=== PATIENT | female | born 1940 | race Caucasian/White ===

== ENCOUNTER 2024-05-18 14:01 | Emergency (ER) | payer MEDICARE, BC ==
[2024-05-18 15:51] LABS: BLOOD UREA NITROGEN,BUN 29 mg/dL (7-18); BUN/CREATININE RATIO 19.3 (9-20); CALCIUM 8.6 mg/dL (8.6-10.2); CARBON DIOXIDE,CO2 25 mmol/L (21-32); CHLORIDE,CL 95 mmol/L (100-110); CREATININE 1.5 mg/dL (0.55-1.02); ESTIMATED GFR 34 mL/min (>60); GLUCOSE RANDOM 285 mg/dL (80-116); POTASSIUM,K 4.9 mmol/L (3.5-5.3); SODIUM,NA 128 mmol/L (135-145)
[2024-05-18 15:57] LABS: A/G RATIO 1.1; ALANINE AMINOTRANSFERASE,ALT 50 U/L (12-36); ALBUMIN 3.1 g/dL (3.2-4.6); ALKALINE PHOSPHATASE 46 IU/L (56-112); ASPARTATE AMNIOTRANSFERASE,AST 33 IU/L (5-25); BILIRUBIN TOTAL 0.8 mg/dL (0.1-1.3); MAGNESIUM 1.4 mg/dL (1.8-2.5); PROTEIN TOTAL,TP 5.9 g/dL (6.0-8.0)
[2024-05-18 15:59] LABS: HEMATOCRIT 32.4 % (34.2-48.2); HEMOGLOBIN 10.7 g/dL (11.4-15.5); MEAN CORPUSCULAR HEMOGLOBIN 30.2 pg (23.9-33.9); MEAN CORPUSCULAR HGB CONC 33.1 g/dL (31.9-34.8); MEAN CORPUSCULAR VOLUME 91.2 fL (76.7-100.5); MEAN PLATELET VOLUME 9.3 fL (7.1-12.4); PLATELET COUNT,PLT 170 x10(3)uL (151-488); RED BLOOD CELL COUNT 3.55 x10(6)uL (3.60-5.20); WHITE BLOOD CELL COUNT,WBC 7.3 x10-3/uL (3.0-10.3)
[2024-05-18 16:47] LABS: LYMPHOCYTES PERCENT MAN 10 % (13-37); MONOCYTES PERCENT MAN 6 % (4-12); SEG NEUTROPHILS PERCENT MAN 84 % (46-82)
[2024-05-18 16:51] LABS: BILIRUBIN,URINE NEGATIVE (NEGATIVE); GLUCOSE,URINE 250 mg/dL (NORMAL); KETONES,URINE NEGATIVE (NEGATIVE); LEUKOCYTE ESTERASE,URINE LARGE (NEGATIVE); NITRITE,URINE NEGATIVE (NEGATIVE); OCCULT BLOOD,URINE MODERATE (NEGATIVE); PROTEIN,URINE NEGATIVE (NEGATIVE); UROBILINOGEN,URINE NORMAL (NEGATIVE)
[2024-05-18 16:53] LABS: COLOR,URINE YELLOW (YELLOW)
[2024-05-18 16:54] LABS: APPEARANCE,URINE SLIGHTLY CLOUDY (CLEAR); BACTERIA,URINE MANY (NS); SQUAMOUS EPITHELIAL CELLS,UR RARE (NS,R,O); WBC,URINE 20-30 (0-5)
[2024-05-18] MEDS: Cefdinir 300 MG Cap PO ONE (17:42)
[2024-05-18] MEDS: Magnesium Oxide 400 MG Tab PO ONE (17:42)
== END 2024-05-18 18:21 | disposition home or self-care (01) ==
LOC: FB.ED 14:01
DX: U07.1 COVID-19 (principal); S00.93XA Contusion of unspecified part of head, initial encounter; S70.01XA Contusion of right hip, initial encounter; N39.0 Urinary tract infection, site not specified; R31.9 Hematuria, unspecified; E87.1 Hypo-osmolality and hyponatremia; E83.42 Hypomagnesemia; I13.0 Hypertensive heart and chronic kidney disease with heart failure and stage 1 through stage 4 chronic kidney disease, or unspecified chronic kidney disease; I50.9 Heart failure, unspecified; N18.32 Chronic kidney disease, stage 3b; E11.22 Type 2 diabetes mellitus with diabetic chronic kidney disease; Z90.710 Acquired absence of both cervix and uterus; Z79.899 Other long term (current) drug therapy; Z88.0 Allergy status to penicillin; Z88.1 Allergy status to other antibiotic agents; Z88.2 Allergy status to sulfonamides; Z88.6 Allergy status to analgesic agent; Z88.8 Allergy status to other drugs, medicaments and biological substances; W19.XXXA Unspecified fall, initial encounter
CPT/HCPCS: 36415; 51798; 70450; 72125; 72192; 80053; 81001; 83735; 85025; 87086; 87088; 93005; 99284; A9270; 87186; 93010

== ENCOUNTER 2024-05-19 14:43 | Inpatient (IN) | payer MEDICARE, BC ==
[2024-05-19 15:19] LABS: BASOPHILS ABSOLUTE AUTO 0.1 x10-3/uL (0.0-0.1); BASOPHILS PERCENT AUTO 0.7 % (0.2-1.5); EOSINOPHILS PERCENT AUTO 0.2 % (0.6-8.1); HEMATOCRIT 33.4 % (34.2-48.2); HEMOGLOBIN 11.2 g/dL (11.4-15.5); LYMPHOCYTES ABSOLUTE AUTO 0.7 x10-3/uL (1.0-4.4); LYMPHOCYTES PERCENT AUTO 8.9 % (18.4-52.1); MEAN CORPUSCULAR HEMOGLOBIN 30.2 pg (23.9-33.9); MEAN CORPUSCULAR HGB CONC 33.6 g/dL (31.9-34.8); MEAN CORPUSCULAR VOLUME 89.9 fL (76.7-100.5); MONOCYTES ABSOLUTE AUTO 0.5 x10-3/uL (0.3-1.0); NEUTROPHILS ABSOLUTE AUTO 6.5 x10-3/uL (1.5-6.3); NEUTROPHILS PERCENT AUTO 84.2 % (30.8-76.2); PLATELET COUNT,PLT 193 x10(3)uL (151-488); RED BLOOD CELL COUNT 3.71 x10(6)uL (3.60-5.20); RED CELL DISTRIBUTION WIDTH 15.9 % (12.3-16.5); WHITE BLOOD CELL COUNT,WBC 7.8 x10-3/uL (3.0-10.3)
[2024-05-19 15:28] LABS: A/G RATIO 1.2; ALANINE AMINOTRANSFERASE,ALT 48 U/L (12-36); ALBUMIN 3.3 g/dL (3.2-4.6); ALKALINE PHOSPHATASE 47 IU/L (56-112); ASPARTATE AMNIOTRANSFERASE,AST 32 IU/L (5-25); BLOOD UREA NITROGEN,BUN 26 mg/dL (7-18); BUN/CREATININE RATIO 21.7 (9-20); CALCIUM 8.7 mg/dL (8.6-10.2); CARBON DIOXIDE,CO2 23 mmol/L (21-32); CHLORIDE,CL 93 mmol/L (100-110); CREATININE 1.2 mg/dL (0.55-1.02); ESTIMATED GFR 45 mL/min (>60); GLUCOSE RANDOM 241 mg/dL (80-116); POTASSIUM,K 5.1 mmol/L (3.5-5.3); PROTEIN TOTAL,TP 6.1 g/dL (6.0-8.0); SODIUM,NA 126 mmol/L (135-145)
[2024-05-19 15:31] LABS: LACTIC ACID 1.4 mmol/L (0.4-2.0)
[2024-05-19] MEDS: HYDROmorphone 2 MG/ML SDV IVPUSH ONE (15:50)
[2024-05-19] MEDS: Lactated Ringers 1,000 ML IV ONE (15:51)
[2024-05-19] MEDS: Ondansetron 4 MG/2 ML SDV IVPUSH ONE (17:35)
[2024-05-19] MEDS ORDERED: Ondansetron 4 MG/2 ML SDV IVPUSH PRN (21:08)
[2024-05-19] MEDS: Ondansetron 4 MG/2 ML SDV IVPUSH PRN (21:22)
[2024-05-19] MEDS: Sodium Chloride 0.9% 10 ML Syringe FLUSH PRN (21:22)
[2024-05-19] MEDS: Sodium Chloride 0.9% 1,000 ML IV SCH (21:25)
[2024-05-19] MEDS: Acetaminophen 500 MG Tab PO PRN (21:26)
[2024-05-20 06:23] LABS: BASOPHILS ABSOLUTE AUTO 0.1 x10-3/uL (0.0-0.1); BASOPHILS PERCENT AUTO 0.9 % (0.2-1.5); EOSINOPHILS ABSOLUTE AUTO 0.1 x10-3/uL (0.0-0.8); EOSINOPHILS PERCENT AUTO 1.1 % (0.6-8.1); HEMOGLOBIN 9.9 g/dL (11.4-15.5); LYMPHOCYTES ABSOLUTE AUTO 1.1 x10-3/uL (1.0-4.4); LYMPHOCYTES PERCENT AUTO 17.3 % (18.4-52.1); MEAN CORPUSCULAR HEMOGLOBIN 30.7 pg (23.9-33.9); MEAN CORPUSCULAR HGB CONC 34.1 g/dL (31.9-34.8); MEAN CORPUSCULAR VOLUME 90.2 fL (76.7-100.5); MEAN PLATELET VOLUME 8.4 fL (7.1-12.4); MONOCYTES ABSOLUTE AUTO 0.7 x10-3/uL (0.3-1.0); MONOCYTES PERCENT AUTO 10.1 % (4.4-15.7); NEUTROPHILS ABSOLUTE AUTO 4.6 x10-3/uL (1.5-6.3); NEUTROPHILS PERCENT AUTO 70.6 % (30.8-76.2); PLATELET COUNT,PLT 147 x10(3)uL (151-488); RED BLOOD CELL COUNT 3.22 x10(6)uL (3.60-5.20); RED CELL DISTRIBUTION WIDTH 16.1 % (12.3-16.5); WHITE BLOOD CELL COUNT,WBC 6.5 x10-3/uL (3.0-10.3)
[2024-05-20 06:36] LABS: ALANINE AMINOTRANSFERASE,ALT 34 U/L (12-36); ALBUMIN 2.6 g/dL (3.2-4.6); ALKALINE PHOSPHATASE 35 IU/L (56-112); ASPARTATE AMNIOTRANSFERASE,AST 25 IU/L (5-25); BLOOD UREA NITROGEN,BUN 18 mg/dL (7-18); CALCIUM 7.7 mg/dL (8.6-10.2); CARBON DIOXIDE,CO2 29 mmol/L (21-32); CHLORIDE,CL 97 mmol/L (100-110); CREATININE 1.2 mg/dL (0.55-1.02); EST CRCL DRUG DOSING (CG) 30.14 mL/min; ESTIMATED GFR 45 mL/min (>60); GLUCOSE RANDOM 88 mg/dL (80-116); POTASSIUM,K 4.6 mmol/L (3.5-5.3); PROTEIN TOTAL,TP 5.2 g/dL (6.0-8.0); SODIUM,NA 130 mmol/L (135-145)
[2024-05-20] MEDS: cefTRIAXone 1 GM Vial IVPUSH SCH (09:11)
[2024-05-20] MEDS: Iopamidol 755 Mg/ML 100 ML Bottle IV ONE (10:12)
[2024-05-20] MEDS: Acetaminophen/HYDROcodone 325-5 MG Tab PO PRN (10:21)
[2024-05-20] MEDS: Sodium Chloride 0.9% 500 ML IV ONE (10:21)
[2024-05-20] MEDS ORDERED: Albuterol 6.7 GM Inhaler INH PRN (11:05)
[2024-05-20] MEDS: Magnesium Sulfate/Water 2 GM in Premix Bag 1 BAG IV ONE (12:01)
[2024-05-20] MEDS ORDERED: Morphine 2 MG/ML SYRINGE IVPUSH PRN (17:13)
[2024-05-20] MEDS: Formoterol/Mometasone 200-5 MCG 8.8 GM Inhaler IH SCH (21:22)
[2024-05-20] MEDS: Carvedilol 6.25 MG Tab PO SCH (21:23)
[2024-05-21 06:25] LABS: BASOPHILS ABSOLUTE AUTO 0.1 x10-3/uL (0.0-0.1); BASOPHILS PERCENT AUTO 0.9 % (0.2-1.5); EOSINOPHILS PERCENT AUTO 0.3 % (0.6-8.1); HEMOGLOBIN 10.8 g/dL (11.4-15.5); LYMPHOCYTES ABSOLUTE AUTO 0.8 x10-3/uL (1.0-4.4); LYMPHOCYTES PERCENT AUTO 7.7 % (18.4-52.1); MEAN CORPUSCULAR HEMOGLOBIN 30.6 pg (23.9-33.9); MEAN CORPUSCULAR HGB CONC 33.9 g/dL (31.9-34.8); MEAN CORPUSCULAR VOLUME 90.3 fL (76.7-100.5); MEAN PLATELET VOLUME 8.2 fL (7.1-12.4); MONOCYTES ABSOLUTE AUTO 0.9 x10-3/uL (0.3-1.0); MONOCYTES PERCENT AUTO 8.4 % (4.4-15.7); NEUTROPHILS ABSOLUTE AUTO 8.4 x10-3/uL (1.5-6.3); NEUTROPHILS PERCENT AUTO 82.7 % (30.8-76.2); PLATELET COUNT,PLT 173 x10(3)uL (151-488); RED BLOOD CELL COUNT 3.54 x10(6)uL (3.60-5.20); RED CELL DISTRIBUTION WIDTH 15.6 % (12.3-16.5); WHITE BLOOD CELL COUNT,WBC 10.2 x10-3/uL (3.0-10.3)
[2024-05-21 06:37] LABS: A/G RATIO 1.1; ALANINE AMINOTRANSFERASE,ALT 30 U/L (12-36); ALBUMIN 2.9 g/dL (3.2-4.6); ALKALINE PHOSPHATASE 45 IU/L (56-112); ASPARTATE AMNIOTRANSFERASE,AST 28 IU/L (5-25); BILIRUBIN TOTAL 1.1 mg/dL (0.1-1.3); BLOOD UREA NITROGEN,BUN 13 mg/dL (7-18); BUN/CREATININE RATIO 11.8 (9-20); CALCIUM 7.6 mg/dL (8.6-10.2); CARBON DIOXIDE,CO2 23 mmol/L (21-32); CHLORIDE,CL 96 mmol/L (100-110); CREATININE 1.1 mg/dL (0.55-1.02); EST CRCL DRUG DOSING (CG) 32.87 mL/min; ESTIMATED GFR 50 mL/min (>60); GLUCOSE RANDOM 134 mg/dL (80-116); POTASSIUM,K 4.2 mmol/L (3.5-5.3); PROTEIN TOTAL,TP 5.5 g/dL (6.0-8.0); SODIUM,NA 127 mmol/L (135-145)
[2024-05-21] MEDS: predniSONE 1 MG Tab PO SCH (08:49)
[2024-05-21] MEDS: Magnesium Oxide 400 MG Tab PO SCH (08:49)
[2024-05-21] MEDS: predniSONE 5 MG Tab PO SCH (08:49)
[2024-05-21] MEDS: Multivitamins with Iron/Calcium/Folic Acid/Minerals Tab PO SCH (08:49)
[2024-05-21] MEDS: Folic Acid 0.4 MG Tab PO SCH (08:53)
[2024-05-21] MEDS: Bisacodyl 5 MG Tab PO PRN (14:59)
[2024-05-21] MEDS: Allopurinol 100 MG Tab PO SCH (21:06)
[2024-05-22 06:28] LABS: BASOPHILS ABSOLUTE AUTO 0.1 x10-3/uL (0.0-0.1); BASOPHILS PERCENT AUTO 0.5 % (0.2-1.5); EOSINOPHILS ABSOLUTE AUTO 0.1 x10-3/uL (0.0-0.8); EOSINOPHILS PERCENT AUTO 0.7 % (0.6-8.1); HEMATOCRIT 31.2 % (34.2-48.2); HEMOGLOBIN 10.7 g/dL (11.4-15.5); LYMPHOCYTES PERCENT AUTO 8.9 % (18.4-52.1); MEAN CORPUSCULAR HEMOGLOBIN 30.6 pg (23.9-33.9); MEAN CORPUSCULAR HGB CONC 34.1 g/dL (31.9-34.8); MEAN CORPUSCULAR VOLUME 89.5 fL (76.7-100.5); MEAN PLATELET VOLUME 8.7 fL (7.1-12.4); MONOCYTES PERCENT AUTO 8.8 % (4.4-15.7); NEUTROPHILS PERCENT AUTO 81.1 % (30.8-76.2); PLATELET COUNT,PLT 179 x10(3)uL (151-488); RED BLOOD CELL COUNT 3.49 x10(6)uL (3.60-5.20); RED CELL DISTRIBUTION WIDTH 15.5 % (12.3-16.5); WHITE BLOOD CELL COUNT,WBC 11.1 x10-3/uL (3.0-10.3)
[2024-05-22 06:37] LABS: BLOOD UREA NITROGEN,BUN 16 mg/dL (7-18); BUN/CREATININE RATIO 13.3 (9-20); CALCIUM 7.9 mg/dL (8.6-10.2); CARBON DIOXIDE,CO2 24 mmol/L (21-32); CHLORIDE,CL 96 mmol/L (100-110); CREATININE 1.2 mg/dL (0.55-1.02); EST CRCL DRUG DOSING (CG) 30.14 mL/min; ESTIMATED GFR 45 mL/min (>60); GLUCOSE RANDOM 133 mg/dL (80-116); MAGNESIUM 1.9 mg/dL (1.8-2.5); POTASSIUM,K 4.8 mmol/L (3.5-5.3); SODIUM,NA 128 mmol/L (135-145)
[2024-05-22] MEDS: Polyethylene Glycol 3350 Powder 17 GM Packet PO PRN (09:06)
[2024-05-22] MEDS: Simethicone 80 MG Tab.Chew PO PRN (11:32)
[2024-05-22] MEDS: Allopurinol 100 MG Tab PO SCH (20:15)
[2024-05-23 08:49] LABS: BASOPHILS ABSOLUTE AUTO 0.1 x10-3/uL (0.0-0.1); BASOPHILS PERCENT AUTO 0.9 % (0.2-1.5); EOSINOPHILS ABSOLUTE AUTO 0.1 x10-3/uL (0.0-0.8); EOSINOPHILS PERCENT AUTO 0.6 % (0.6-8.1); HEMATOCRIT 30.9 % (34.2-48.2); HEMOGLOBIN 10.3 g/dL (11.4-15.5); LYMPHOCYTES ABSOLUTE AUTO 0.8 x10-3/uL (1.0-4.4); LYMPHOCYTES PERCENT AUTO 8.8 % (18.4-52.1); MEAN CORPUSCULAR HEMOGLOBIN 30.4 pg (23.9-33.9); MEAN CORPUSCULAR HGB CONC 33.5 g/dL (31.9-34.8); MEAN CORPUSCULAR VOLUME 90.6 fL (76.7-100.5); MEAN PLATELET VOLUME 8.9 fL (7.1-12.4); MONOCYTES ABSOLUTE AUTO 0.6 x10-3/uL (0.3-1.0); MONOCYTES PERCENT AUTO 6.9 % (4.4-15.7); NEUTROPHILS ABSOLUTE AUTO 7.6 x10-3/uL (1.5-6.3); NEUTROPHILS PERCENT AUTO 82.8 % (30.8-76.2); PLATELET COUNT,PLT 199 x10(3)uL (151-488); RED BLOOD CELL COUNT 3.41 x10(6)uL (3.60-5.20); RED CELL DISTRIBUTION WIDTH 15.8 % (12.3-16.5); WHITE BLOOD CELL COUNT,WBC 9.1 x10-3/uL (3.0-10.3)
[2024-05-23 08:54] LABS: BLOOD UREA NITROGEN,BUN 23 mg/dL (7-18); BUN/CREATININE RATIO 17.7 (9-20); CALCIUM 8.1 mg/dL (8.6-10.2); CARBON DIOXIDE,CO2 23 mmol/L (21-32); CHLORIDE,CL 98 mmol/L (100-110); CREATININE 1.3 mg/dL (0.55-1.02); EST CRCL DRUG DOSING (CG) 27.82 mL/min; ESTIMATED GFR 41 mL/min (>60); GLUCOSE RANDOM 263 mg/dL (80-116); MAGNESIUM 1.8 mg/dL (1.8-2.5); POTASSIUM,K 5.1 mmol/L (3.5-5.3); SODIUM,NA 131 mmol/L (135-145)
[2024-05-23] MEDS: Formoterol/Mometasone 200-5 MCG 8.8 GM Inhaler IH SCH (09:25)
[2024-05-23] MEDS: Mineral Oil 133 ML BOTTLE RECTAL ONE (11:10)
[2024-05-23] MEDS: Folic Acid 0.8 MG Tab PO SCH (11:21)
[2024-05-24 06:38] LABS: BASOPHILS PERCENT AUTO 0.6 % (0.2-1.5); EOSINOPHILS ABSOLUTE AUTO 0.1 x10-3/uL (0.0-0.8); EOSINOPHILS PERCENT AUTO 0.7 % (0.6-8.1); HEMATOCRIT 28.9 % (34.2-48.2); HEMOGLOBIN 9.8 g/dL (11.4-15.5); LYMPHOCYTES ABSOLUTE AUTO 0.9 x10-3/uL (1.0-4.4); MEAN CORPUSCULAR HEMOGLOBIN 30.8 pg (23.9-33.9); MEAN CORPUSCULAR HGB CONC 33.8 g/dL (31.9-34.8); MEAN CORPUSCULAR VOLUME 91.2 fL (76.7-100.5); MEAN PLATELET VOLUME 8.3 fL (7.1-12.4); MONOCYTES ABSOLUTE AUTO 0.7 x10-3/uL (0.3-1.0); MONOCYTES PERCENT AUTO 8.7 % (4.4-15.7); NEUTROPHILS ABSOLUTE AUTO 6.4 x10-3/uL (1.5-6.3); PLATELET COUNT,PLT 194 x10(3)uL (151-488); RED BLOOD CELL COUNT 3.17 x10(6)uL (3.60-5.20); RED CELL DISTRIBUTION WIDTH 16.2 % (12.3-16.5); WHITE BLOOD CELL COUNT,WBC 8.1 x10-3/uL (3.0-10.3)
[2024-05-24 06:45] LABS: BLOOD UREA NITROGEN,BUN 24 mg/dL (7-18); CARBON DIOXIDE,CO2 27 mmol/L (21-32); CREATININE 1.2 mg/dL (0.55-1.02); EST CRCL DRUG DOSING (CG) 30.14 mL/min; ESTIMATED GFR 45 mL/min (>60); GLUCOSE RANDOM 132 mg/dL (80-116)
[2024-05-24 06:59] LABS: CHLORIDE,CL 100 mmol/L (100-110); POTASSIUM,K 4.8 mmol/L (3.5-5.3); SODIUM,NA 132 mmol/L (135-145)
[2024-05-25] MEDS: Dicyclomine 10 MG Cap PO ONE (02:05)
[2024-05-25 06:54] LABS: BASOPHILS PERCENT AUTO 0.4 % (0.2-1.5); EOSINOPHILS ABSOLUTE AUTO 0.1 x10-3/uL (0.0-0.8); EOSINOPHILS PERCENT AUTO 0.7 % (0.6-8.1); HEMATOCRIT 29.1 % (34.2-48.2); HEMOGLOBIN 9.9 g/dL (11.4-15.5); LYMPHOCYTES ABSOLUTE AUTO 0.7 x10-3/uL (1.0-4.4); LYMPHOCYTES PERCENT AUTO 10.4 % (18.4-52.1); MEAN CORPUSCULAR HEMOGLOBIN 30.7 pg (23.9-33.9); MEAN CORPUSCULAR HGB CONC 33.9 g/dL (31.9-34.8); MEAN CORPUSCULAR VOLUME 90.8 fL (76.7-100.5); MONOCYTES ABSOLUTE AUTO 0.7 x10-3/uL (0.3-1.0); MONOCYTES PERCENT AUTO 9.7 % (4.4-15.7); NEUTROPHILS ABSOLUTE AUTO 5.7 x10-3/uL (1.5-6.3); NEUTROPHILS PERCENT AUTO 78.8 % (30.8-76.2); PLATELET COUNT,PLT 201 x10(3)uL (151-488); RED BLOOD CELL COUNT 3.21 x10(6)uL (3.60-5.20); RED CELL DISTRIBUTION WIDTH 15.5 % (12.3-16.5); WHITE BLOOD CELL COUNT,WBC 7.2 x10-3/uL (3.0-10.3)
[2024-05-25 06:59] LABS: BLOOD UREA NITROGEN,BUN 19 mg/dL (7-18); BUN/CREATININE RATIO 17.3 (9-20); CALCIUM 8.4 mg/dL (8.6-10.2); CARBON DIOXIDE,CO2 29 mmol/L (21-32); CHLORIDE,CL 100 mmol/L (100-110); CREATININE 1.1 mg/dL (0.55-1.02); EST CRCL DRUG DOSING (CG) 32.87 mL/min; ESTIMATED GFR 50 mL/min (>60); GLUCOSE RANDOM 135 mg/dL (80-116); MAGNESIUM 1.5 mg/dL (1.8-2.5); POTASSIUM,K 4.5 mmol/L (3.5-5.3); SODIUM,NA 133 mmol/L (135-145)
[2024-05-25] MEDS: Sodium Chloride 0.9% 1,000 ML IV SCH (09:26)
[2024-05-25] MEDS: Magnesium Sulfate/Water 4 GM in Premix Bag 1 BAG IV ONE (09:27)
[2024-05-25] MEDS: Dicyclomine 10 MG Cap PO PRN (12:06)
[2024-05-26 07:05] LABS: BLOOD UREA NITROGEN,BUN 19 mg/dL (7-18); BUN/CREATININE RATIO 17.3 (9-20); CALCIUM 8.3 mg/dL (8.6-10.2); CARBON DIOXIDE,CO2 27 mmol/L (21-32); CHLORIDE,CL 101 mmol/L (100-110); CREATININE 1.1 mg/dL (0.55-1.02); EST CRCL DRUG DOSING (CG) 32.87 mL/min; ESTIMATED GFR 50 mL/min (>60); GLUCOSE RANDOM 113 mg/dL (80-116); MAGNESIUM 2.1 mg/dL (1.8-2.5); POTASSIUM,K 4.7 mmol/L (3.5-5.3); SODIUM,NA 135 mmol/L (135-145)
[2024-05-26 07:12] LABS: BASOPHILS PERCENT AUTO 0.3 % (0.2-1.5); EOSINOPHILS ABSOLUTE AUTO 0.1 x10-3/uL (0.0-0.8); EOSINOPHILS PERCENT AUTO 1.2 % (0.6-8.1); HEMATOCRIT 29.7 % (34.2-48.2); HEMOGLOBIN 10.1 g/dL (11.4-15.5); LYMPHOCYTES ABSOLUTE AUTO 0.7 x10-3/uL (1.0-4.4); LYMPHOCYTES PERCENT AUTO 12.3 % (18.4-52.1); MEAN CORPUSCULAR HEMOGLOBIN 30.9 pg (23.9-33.9); MEAN CORPUSCULAR VOLUME 90.7 fL (76.7-100.5); MEAN PLATELET VOLUME 8.2 fL (7.1-12.4); MONOCYTES ABSOLUTE AUTO 0.6 x10-3/uL (0.3-1.0); MONOCYTES PERCENT AUTO 9.9 % (4.4-15.7); NEUTROPHILS ABSOLUTE AUTO 4.6 x10-3/uL (1.5-6.3); NEUTROPHILS PERCENT AUTO 76.3 % (30.8-76.2); PLATELET COUNT,PLT 212 x10(3)uL (151-488); RED BLOOD CELL COUNT 3.27 x10(6)uL (3.60-5.20); RED CELL DISTRIBUTION WIDTH 15.8 % (12.3-16.5); WHITE BLOOD CELL COUNT,WBC 6.1 x10-3/uL (3.0-10.3)
[2024-05-27 06:53] LABS: BASOPHILS PERCENT AUTO 0.4 % (0.2-1.5); EOSINOPHILS ABSOLUTE AUTO 0.1 x10-3/uL (0.0-0.8); HEMATOCRIT 27.9 % (34.2-48.2); HEMOGLOBIN 9.4 g/dL (11.4-15.5); LYMPHOCYTES ABSOLUTE AUTO 0.7 x10-3/uL (1.0-4.4); LYMPHOCYTES PERCENT AUTO 12.8 % (18.4-52.1); MEAN CORPUSCULAR HEMOGLOBIN 30.8 pg (23.9-33.9); MEAN CORPUSCULAR HGB CONC 33.7 g/dL (31.9-34.8); MEAN CORPUSCULAR VOLUME 91.3 fL (76.7-100.5); MEAN PLATELET VOLUME 8.1 fL (7.1-12.4); MONOCYTES ABSOLUTE AUTO 0.6 x10-3/uL (0.3-1.0); MONOCYTES PERCENT AUTO 10.1 % (4.4-15.7); NEUTROPHILS ABSOLUTE AUTO 4.2 x10-3/uL (1.5-6.3); NEUTROPHILS PERCENT AUTO 75.7 % (30.8-76.2); PLATELET COUNT,PLT 202 x10(3)uL (151-488); RED BLOOD CELL COUNT 3.06 x10(6)uL (3.60-5.20); RED CELL DISTRIBUTION WIDTH 15.9 % (12.3-16.5); WHITE BLOOD CELL COUNT,WBC 5.5 x10-3/uL (3.0-10.3)
[2024-05-27 07:04] LABS: BLOOD UREA NITROGEN,BUN 17 mg/dL (7-18); CALCIUM 7.8 mg/dL (8.6-10.2); CARBON DIOXIDE,CO2 26 mmol/L (21-32); CHLORIDE,CL 104 mmol/L (100-110); EST CRCL DRUG DOSING (CG) 36.16 mL/min; ESTIMATED GFR 56 mL/min (>60); GLUCOSE RANDOM 109 mg/dL (80-116); POTASSIUM,K 3.6 mmol/L (3.5-5.3); SODIUM,NA 136 mmol/L (135-145)
[2024-05-27] MEDS: Magnesium Sulfate/Water 2 GM in Premix Bag 1 BAG IV ONE (13:59)
[2024-05-28 06:47] LABS: BASOPHILS PERCENT AUTO 0.4 % (0.2-1.5); EOSINOPHILS ABSOLUTE AUTO 0.1 x10-3/uL (0.0-0.8); EOSINOPHILS PERCENT AUTO 0.9 % (0.6-8.1); HEMATOCRIT 29.5 % (34.2-48.2); LYMPHOCYTES ABSOLUTE AUTO 0.8 x10-3/uL (1.0-4.4); LYMPHOCYTES PERCENT AUTO 13.6 % (18.4-52.1); MEAN CORPUSCULAR HEMOGLOBIN 30.9 pg (23.9-33.9); MEAN CORPUSCULAR HGB CONC 33.9 g/dL (31.9-34.8); MEAN CORPUSCULAR VOLUME 91.1 fL (76.7-100.5); MEAN PLATELET VOLUME 7.7 fL (7.1-12.4); MONOCYTES ABSOLUTE AUTO 0.5 x10-3/uL (0.3-1.0); NEUTROPHILS ABSOLUTE AUTO 4.6 x10-3/uL (1.5-6.3); NEUTROPHILS PERCENT AUTO 76.1 % (30.8-76.2); PLATELET COUNT,PLT 201 x10(3)uL (151-488); RED BLOOD CELL COUNT 3.23 x10(6)uL (3.60-5.20); RED CELL DISTRIBUTION WIDTH 15.8 % (12.3-16.5); WHITE BLOOD CELL COUNT,WBC 6.1 x10-3/uL (3.0-10.3)
[2024-05-28 06:51] LABS: BLOOD UREA NITROGEN,BUN 14 mg/dL (7-18); BUN/CREATININE RATIO 15.6 (9-20); CARBON DIOXIDE,CO2 27 mmol/L (21-32); CHLORIDE,CL 103 mmol/L (100-110); CREATININE 0.9 mg/dL (0.55-1.02); EST CRCL DRUG DOSING (CG) 40.18 mL/min; ESTIMATED GFR 63 mL/min (>60); GLUCOSE RANDOM 101 mg/dL (80-116); MAGNESIUM 1.8 mg/dL (1.8-2.5); POTASSIUM,K 3.8 mmol/L (3.5-5.3); SODIUM,NA 137 mmol/L (135-145)
[2024-05-29 06:56] LABS: BASOPHILS PERCENT AUTO 0.6 % (0.2-1.5); EOSINOPHILS ABSOLUTE AUTO 0.1 x10-3/uL (0.0-0.8); EOSINOPHILS PERCENT AUTO 0.9 % (0.6-8.1); HEMATOCRIT 28.8 % (34.2-48.2); HEMOGLOBIN 9.7 g/dL (11.4-15.5); LYMPHOCYTES ABSOLUTE AUTO 0.9 x10-3/uL (1.0-4.4); LYMPHOCYTES PERCENT AUTO 12.7 % (18.4-52.1); MEAN CORPUSCULAR HEMOGLOBIN 30.4 pg (23.9-33.9); MEAN CORPUSCULAR HGB CONC 33.5 g/dL (31.9-34.8); MEAN CORPUSCULAR VOLUME 90.7 fL (76.7-100.5); MEAN PLATELET VOLUME 8.1 fL (7.1-12.4); MONOCYTES ABSOLUTE AUTO 0.6 x10-3/uL (0.3-1.0); MONOCYTES PERCENT AUTO 7.9 % (4.4-15.7); NEUTROPHILS ABSOLUTE AUTO 5.4 x10-3/uL (1.5-6.3); NEUTROPHILS PERCENT AUTO 77.9 % (30.8-76.2); PLATELET COUNT,PLT 188 x10(3)uL (151-488); RED BLOOD CELL COUNT 3.18 x10(6)uL (3.60-5.20); RED CELL DISTRIBUTION WIDTH 15.8 % (12.3-16.5)
== END 2024-05-29 10:50 | disposition home or self-care (01) | DRG 388 ==
LOC: FB.ED 14:43 → FB.MS 19:59 → OBSVTOIN 05-20 10:16
PROVIDERS: ADMIT Family Medicine; ATTEND Internal Medicine
DX: K56.7 Ileus, unspecified (principal); U07.1 COVID-19; N39.0 Urinary tract infection, site not specified; E87.1 Hypo-osmolality and hyponatremia; I13.0 Hypertensive heart and chronic kidney disease with heart failure and stage 1 through stage 4 chronic kidney disease, or unspecified chronic kidney disease; K92.1 Melena; N12 Tubulo-interstitial nephritis, not specified as acute or chronic; N18.9 Chronic kidney disease, unspecified; M05.9 Rheumatoid arthritis with rheumatoid factor, unspecified; I50.9 Heart failure, unspecified; E11.22 Type 2 diabetes mellitus with diabetic chronic kidney disease; Z88.0 Allergy status to penicillin; E86.0 Dehydration; E78.00 Pure hypercholesterolemia, unspecified; J45.30 Mild persistent asthma, uncomplicated; Z88.5 Allergy status to narcotic agent; X58.XXXD Exposure to other specified factors, subsequent encounter; N18.31 Chronic kidney disease, stage 3a; E83.42 Hypomagnesemia; D63.1 Anemia in chronic kidney disease; S70.01XD Contusion of right hip, subsequent encounter; K59.03 Drug induced constipation; Z88.6 Allergy status to analgesic agent; Z88.1 Allergy status to other antibiotic agents; Z88.2 Allergy status to sulfonamides; Z88.8 Allergy status to other drugs, medicaments and biological substances; Z79.899 Other long term (current) drug therapy; Z90.89 Acquired absence of other organs; Z90.710 Acquired absence of both cervix and uterus; W19.XXXD Unspecified fall, subsequent encounter; Y92.009 Unspecified place in unspecified non-institutional (private) residence as the place of occurrence of the external cause
CPT/HCPCS: 36415; 74018; 74178; 80048; 80053; 83605; 83735; 85025; 86140; 96361; 96374; 96375; 96376; 99222; 99232; 99238; 99284-25; 99285; A9270-GY; G0378; J0696; J1170; J2405; J3475; J3490; J7030; J7040; J7120; J7512; Q9967

== ENCOUNTER 2025-03-15 09:28 | Emergency (ER) | payer MEDICARE, BC ==
[2025-03-15] MEDS ORDERED: Sodium Chloride 0.9% 10 ML Syringe FLUSH PRN (10:00)
[2025-03-15 10:10] LABS: BASOPHILS ABSOLUTE AUTO 0.1 x10-3/uL (0.0-0.1); BASOPHILS PERCENT AUTO 1.2 % (0.2-1.5); EOSINOPHILS ABSOLUTE AUTO 0.1 x10-3/uL (0.0-0.8); EOSINOPHILS PERCENT AUTO 1.5 % (0.6-8.1); HEMATOCRIT 34.2 % (34.2-48.2); HEMOGLOBIN 11.7 g/dL (11.4-15.5); LYMPHOCYTES ABSOLUTE AUTO 1.4 x10-3/uL (1.0-4.4); LYMPHOCYTES PERCENT AUTO 14.4 % (18.4-52.1); MEAN CORPUSCULAR HEMOGLOBIN 31.1 pg (23.9-33.9); MEAN CORPUSCULAR HGB CONC 34.1 g/dL (31.9-34.8); MEAN CORPUSCULAR VOLUME 91.1 fL (76.7-100.5); MEAN PLATELET VOLUME 8.7 fL (7.1-12.4); MONOCYTES ABSOLUTE AUTO 0.8 x10-3/uL (0.3-1.0); NEUTROPHILS PERCENT AUTO 74.9 % (30.8-76.2); PLATELET COUNT,PLT 194 x10(3)uL (151-488); RED BLOOD CELL COUNT 3.75 x10(6)uL (3.60-5.20); RED CELL DISTRIBUTION WIDTH 16.3 % (12.3-16.5); WHITE BLOOD CELL COUNT,WBC 9.4 x10-3/uL (3.0-10.3)
[2025-03-15 10:15] LABS: BLOOD UREA NITROGEN,BUN 59 mg/dL (7-18); BUN/CREATININE RATIO 32.8 (9-20); CALCIUM 9.2 mg/dL (8.6-10.2); CARBON DIOXIDE,CO2 29 mmol/L (21-32); CHLORIDE,CL 101 mmol/L (100-110); CREATININE 1.8 mg/dL (0.55-1.02); ESTIMATED GFR 27 mL/min (>60); GLUCOSE RANDOM 219 mg/dL (80-116); POTASSIUM,K 3.9 mmol/L (3.5-5.3); SODIUM,NA 135 mmol/L (135-145)
[2025-03-15 10:21] LABS: A/G RATIO 1.1; ALANINE AMINOTRANSFERASE,ALT 47 U/L (12-36); ALBUMIN 3.1 g/dL (3.2-4.6); ALKALINE PHOSPHATASE 69 IU/L (56-112); ASPARTATE AMNIOTRANSFERASE,AST 32 IU/L (5-25); BILIRUBIN TOTAL 0.9 mg/dL (0.1-1.3)
[2025-03-15 10:23] LABS: C-REACTIVE PROTEIN 0.88 mg/dL (<0.50)
[2025-03-15 10:25] VITALS: BP 114/52; PULSE 65
[2025-03-15 10:25] LABS: LACTIC ACID 2.7 mmol/L (0.4-2.0)
[2025-03-15] MEDS: Sodium Chloride 0.9% 1,000 ML IV ONE ×2 (10:40→11:43)
[2025-03-15 12:35] LABS: BILIRUBIN,URINE NEGATIVE (NEGATIVE); GLUCOSE,URINE >1000 mg/dL (NORMAL); KETONES,URINE NEGATIVE (NEGATIVE); LEUKOCYTE ESTERASE,URINE NEGATIVE (NEGATIVE); NITRITE,URINE NEGATIVE (NEGATIVE); OCCULT BLOOD,URINE NEGATIVE (NEGATIVE); PROTEIN,URINE NEGATIVE (NEGATIVE); UROBILINOGEN,URINE NORMAL (NEGATIVE)
[2025-03-15 12:38] LABS: APPEARANCE,URINE CLEAR (CLEAR); COLOR,URINE YELLOW (YELLOW)
== END 2025-03-15 15:32 | disposition home or self-care (01) ==
LOC: FB.ED 09:28
DX: M06.9 Rheumatoid arthritis, unspecified (principal); E86.0 Dehydration; E11.22 Type 2 diabetes mellitus with diabetic chronic kidney disease; I13.0 Hypertensive heart and chronic kidney disease with heart failure and stage 1 through stage 4 chronic kidney disease, or unspecified chronic kidney disease; I50.9 Heart failure, unspecified; N18.9 Chronic kidney disease, unspecified; E78.00 Pure hypercholesterolemia, unspecified; Z88.0 Allergy status to penicillin; Z88.1 Allergy status to other antibiotic agents; Z88.2 Allergy status to sulfonamides; Z88.8 Allergy status to other drugs, medicaments and biological substances; Z91.09 Other allergy status, other than to drugs and biological substances; Z79.899 Other long term (current) drug therapy; Z90.710 Acquired absence of both cervix and uterus
CPT/HCPCS: 36415; 80053; 81003; 83605; 83690; 83735; 84484; 85025; 86140; 93005; 93010; 96360; 96361; 99283-25; 99284; J7030

== ENCOUNTER 2025-07-12 08:59 | Emergency (ER) | payer MEDICARE, BC ==
[2025-07-12 10:06] LABS: BASOPHILS ABSOLUTE AUTO 0.1 x10-3/uL (0.0-0.1); BASOPHILS PERCENT AUTO 0.5 % (0.2-1.5); EOSINOPHILS ABSOLUTE AUTO 0.1 x10-3/uL (0.0-0.8); EOSINOPHILS PERCENT AUTO 1.1 % (0.6-8.1); LYMPHOCYTES ABSOLUTE AUTO 1.8 x10-3/uL (1.0-4.4); LYMPHOCYTES PERCENT AUTO 18.1 % (18.4-52.1); MEAN PLATELET VOLUME 9.4 fL (7.1-12.4); MONOCYTES ABSOLUTE AUTO 0.8 x10-3/uL (0.3-1.0); MONOCYTES PERCENT AUTO 8.4 % (4.4-15.7); NEUTROPHILS ABSOLUTE AUTO 7.1 x10-3/uL (1.5-6.3); NEUTROPHILS PERCENT AUTO 71.9 % (30.8-76.2); PLATELET COUNT,PLT 224 x10(3)uL (151-488); RED BLOOD CELL COUNT 3.53 x10(6)uL (3.60-5.20); RED CELL DISTRIBUTION WIDTH 16.6 % (12.3-16.5); WHITE BLOOD CELL COUNT,WBC 9.9 x10-3/uL (3.0-10.3)
[2025-07-12 10:09] LABS: BLOOD UREA NITROGEN,BUN 32 mg/dL (7-18); CARBON DIOXIDE,CO2 27 mmol/L (21-32); CHLORIDE,CL 93 mmol/L (100-110); CREATININE 1.2 mg/dL (0.55-1.02); ESTIMATED GFR 44 mL/min (>60); GLUCOSE RANDOM 98 mg/dL (80-116); POTASSIUM,K 4.1 mmol/L (3.5-5.3); SODIUM,NA 129 mmol/L (135-145)
[2025-07-12 10:16] LABS: A/G RATIO 1.1; ALANINE AMINOTRANSFERASE,ALT 31 U/L (12-36); ASPARTATE AMNIOTRANSFERASE,AST 36 IU/L (5-25); BILIRUBIN TOTAL 1.3 mg/dL (0.1-1.3); PROTEIN TOTAL,TP 6.0 g/dL (6.0-8.0)
[2025-07-12 10:31] LABS: SEDIMENTATION RATE MANUAL 23 mm/hr (0-20)
[2025-07-12 11:06] LABS: GLUCOSE,URINE NORMAL (NORMAL); OCCULT BLOOD,URINE MODERATE (NEGATIVE)
[2025-07-12 11:08] LABS: APPEARANCE,URINE SLIGHTLY CLOUDY (CLEAR)
[2025-07-12 11:10] LABS: SQUAMOUS EPITHELIAL CELLS,UR FEW (NS,R,O)
== END 2025-07-12 12:55 | disposition home or self-care (01) ==
LOC: FB.ED 08:59
DX: N39.0 Urinary tract infection, site not specified (principal); E87.20 Acidosis, unspecified; R79.82 Elevated C-reactive protein (CRP); E87.1 Hypo-osmolality and hyponatremia; R79.89 Other specified abnormal findings of blood chemistry; D64.9 Anemia, unspecified; R33.9 Retention of urine, unspecified; I13.0 Hypertensive heart and chronic kidney disease with heart failure and stage 1 through stage 4 chronic kidney disease, or unspecified chronic kidney disease; I50.9 Heart failure, unspecified; N18.9 Chronic kidney disease, unspecified; J45.909 Unspecified asthma, uncomplicated; E11.22 Type 2 diabetes mellitus with diabetic chronic kidney disease; Z90.710 Acquired absence of both cervix and uterus; Z88.0 Allergy status to penicillin; Z88.1 Allergy status to other antibiotic agents; Z88.2 Allergy status to sulfonamides; Z88.5 Allergy status to narcotic agent; Z88.6 Allergy status to analgesic agent; Z88.8 Allergy status to other drugs, medicaments and biological substances; Z79.899 Other long term (current) drug therapy
CPT/HCPCS: 36415; 74176; 80053; 81001; 83605; 83735; 85025; 85651; 86140; 87086; 87088; 87186; 96361; 96374; 99284; J0696; J7030